=== PATIENT | female | born 2000 | race Caucasian/White ===

== ENCOUNTER 2024-08-04 10:48 | Emergency (ER) | payer OTHER ==
[~2024-08-04] VITALS: Ht 167.6 cm; Wt 143.5 kg
[~2024-08-04 10:48] MED LIST: BACTRIM DS TAB1 EACH PO; CETIRIZINE HCL10 MG PO; CRUTCH1 EACH; DICLOXACILLIN500 MG PO; ELOCON15 GM TOP; IBUPROFEN400 MG PO; IBUPROFEN600 MG PO; NAPROXEN500 MG PO; TYLENOL WITH C1 EACH PO; ZOFRAN ODT4 MG PO
--- OUTSIDE RECORDS SUMMARY | 2024-08-04 10:51 | XMS ---
PreManage Notification: DILSHAD HENDERSON Security Copy Coordinator Events No recent Security Events currently on file CRITERIA MET - Group Notification CARE PROVIDERS -, [facility] Dentist: Scraper Hand Current [place] PHONE: [phone] -Christine- Dentist: Scraper Hand [facility] PHONE: [phone] DONTE ARENAS Physician Assistant Dontae BAUMANN PHONE: [phone] [facility]: [facility] Qual[facility] Health Current WORKERS CLINIC [facility] ([facility]) [facility] PHONE: [phone] Junito has no Care Guidelines for this patient. [place] VISIT COUNT (12 MO.) 1 MELO Coulter TOTAL 1 NOTE: Visits indicate total known visits. ED/UCC VISIT TRACKING (12 MO.) 08/04/2024 10:48 MELO Martin [place] TYPE: Emergency COMPLAINT: - COLD SYMPTOMS INPATIENT VISIT TRACKING (12 MO.) No inpatient visits to display in this time frame [id number]
[2024-08-04 12:19] LABS: INFLUENZA B NAA NEGATIVE (NEGATIVE); RESPIRATORY SYNCYTIAL VIR NAA NEGATIVE (NEGATIVE)
[2024-08-04 13:20] VITALS: BP 149/94
== END 2024-08-04 13:20 | disposition home or self-care (01) ==
LOC: ED 10:48
PROVIDERS: Emergency Medicine
DX: U07.1 COVID-19 (principal); E66.9 Obesity, unspecified
CPT/HCPCS: 87502; 87651; 99283; U0002

== ENCOUNTER 2024-09-09 13:45 | Emergency (ER) | payer OTHER ==
[~2024-09-09] VITALS: Ht 167.6 cm; Wt 148.5 kg
--- OUTSIDE RECORDS SUMMARY | 2024-09-09 13:52 | XMS ---
PreManage Notification: BALA HENDERSON Security Retort Loader Events No recent Security Events currently on file CRITERIA MET - Group Notification CARE PROVIDERS -, [facility] Dentist: Cloth Neutralizer Current [place] PHONE: [phone] -Christine- Dentist: Cloth Neutralizer [facility] PHONE: [phone] DONTE ARENAS Physician Assistant Dontae BAUMANN PHONE: [phone] [facility]: [facility] Health Current WORKERS CLINIC [facility] ([facility]) [facility] PHONE: [phone] Junito has no Care Guidelines for this patient. [place] VISIT COUNT (12 MO.) 2 MELO Coulter TOTAL 2 NOTE: Visits indicate total known visits. ED/UCC VISIT TRACKING (12 MO.) 09/09/2024 13:46 MELO Martin [place] TYPE: Emergency COMPLAINT: - FALL 08/04/2024 10:48 MELO Martin [place] TYPE: Emergency COMPLAINT: - COLD SYMPTOMS DIAGNOSES: - COVID-19 - Nasal congestion - Obesity, unspecified INPATIENT VISIT TRACKING (12 MO.) No inpatient visits to display in this time frame [id number]
[2024-09-09] MEDS ORDERED: ONDANSETRON ODT8 MG PO (16:05)
[2024-09-09 16:20] VITALS: BP 151/80
[2024-09-10] MEDS ORDERED: TRAMADOL HCL50 MG PO (22:19)
[2024-09-10] MEDS ORDERED: CEPHALEXIN500 M1 PO (22:19)
== END 2024-09-09 16:25 | disposition home or self-care (01) ==
LOC: ED 13:45
DX: S09.90XA Unspecified injury of head, initial encounter (principal); M54.2 Cervicalgia; W10.9XXA Fall (on) (from) unspecified stairs and steps, initial encounter; E66.9 Obesity, unspecified; Z68.43 Body mass index [BMI] 50.0-59.9, adult
CPT/HCPCS: 70450; 72125; 99283-25

== ENCOUNTER 2024-09-10 17:52 | Emergency (ER) | payer OTHER ==
[~2024-09-10] VITALS: Ht 167.6 cm; Wt 148.4 kg
[~2024-09-10 17:52] MED LIST changes: +ONDANSETRON ODT8 MG PO
--- OUTSIDE RECORDS SUMMARY | 2024-09-10 17:59 | XMS ---
PreManage Notification: BALA HENDERSON Security Strapping Machine Tender Events No recent Security Events currently on file CRITERIA MET - Group Notification - [facility] - 2 Visits in 30 Days CARE PROVIDERS -[facility] Dentist: Document Imaging Specialist [facility] [place] PHONE: [phone] -Christine- Dentist: Document Imaging Specialist [facility] PHONE: [phone] DONTE ARENAS PHONE: [phone] [facility]/Center: [facility] Qualified [facility] WORKERS CLINIC \[facility] ([facility] PHONE: [phone] Junito has no Care Guidelines for this patient. ERitchieDRitchie VISIT COUNT (12 MO.) 3 MELO Coulter TOTAL 3 NOTE: Visits indicate total known visits. ED/UCC VISIT TRACKING (12 MO.) 09/10/2024 17:53 MELO Martin [place] TYPE: Emergency COMPLAINT: - FACE PAIN 09/09/2024 13:46 MELO Martin [place] TYPE: Emergency COMPLAINT: - FALL DIAGNOSES: - Body mass index [BMI] 50.0-59.9, adult - Cervicalgia - Fall (on) (from) unspecified stairs and steps, initial encounter - Obesity, unspecified - Unspecified injury of head, initial encounter 08/04/2024 10:48 MELO Martin [place] TYPE: Emergency COMPLAINT: - COLD SYMPTOMS DIAGNOSES: - COVID-19 - Nasal congestion - Obesity, unspecified INPATIENT VISIT TRACKING (12 MO.) No inpatient visits to display in this time frame [id number]
[2024-09-10] MEDS ORDERED: OXYCODONE/APAP 5/325 TAB PO ONE (20:15)
[2024-09-10] MEDS ORDERED: TRAMADOL HCL50 MG PO (22:19)
[2024-09-10] MEDS ORDERED: CEPHALEXIN500 M1 PO (22:19)
[2024-09-10] MEDS ORDERED: CEPHALEXIN MONOHYDRATE 500 MG HOME.PACK PO ONE (22:30)
[2024-09-10] MEDS ORDERED: TRAMADOL HCL 50 MG HOME.PACK PO ONE (22:30)
[2024-09-10 22:41] VITALS: BP 136/77
== END 2024-09-10 22:44 | disposition home or self-care (01) ==
LOC: ED 17:52
DX: S00.83XA Contusion of other part of head, initial encounter (principal); K02.9 Dental caries, unspecified; K04.7 Periapical abscess without sinus; E66.9 Obesity, unspecified; Z68.43 Body mass index [BMI] 50.0-59.9, adult; W10.9XXA Fall (on) (from) unspecified stairs and steps, initial encounter
CPT/HCPCS: 70486; 99283-25; A9270

== ENCOUNTER 2025-03-05 09:44 | Emergency (ER) | payer OTHER ==
[~2025-03-05] VITALS: Ht 167.6 cm; Wt 147.0 kg
[~2025-03-05 09:44] MED LIST changes: +CEPHALEXIN500 M1 PO; +TRAMADOL HCL50 MG PO
--- OUTSIDE RECORDS SUMMARY | 2025-03-05 09:51 | XMS ---
PreManage Notification: BALA HENDERSON Security Laboratory Analyst Events No recent Security Events currently on file CRITERIA MET - Group Notification CARE PROVIDERS -, [facility] Dentist: Air Conditioner Installer Helper Current [place] PHONE: [phone] -Christine- Dentist: Air Conditioner Installer Helper Current [facility] PHONE: [phone] MACHELLE FLETCHER Physician Youth Officer [facility] [place] PHONE: [phone] [facility] Qual[facility] Health Current WORKERS CLINIC \F\ [place] ([facility]) <UNAVAIL> PHONE: [phone] Junito has no Care Guidelines for this patient. [place] VISIT COUNT (12 MO.) 5 MELO Coulter TOTAL 5 NOTE: Visits indicate total known visits. ED/UCC VISIT TRACKING (12 MO.) 03/05/2025 09:45 MELO Martin [place] TYPE: Emergency COMPLAINT: - FACIAL SWELLING 10/01/2024 07:32 MELO Tolentinoony Nat Banuelos [place] TYPE: Emergency COMPLAINT: - VOMITING DIAGNOSES: - Body mass index [BMI] 50.0-59.9, adult - Diarrhea, unspecified - Nausea with vomiting, unspecified - Obesity, unspecified - Other detention (current) drug therapy 09/10/2024 17:53 MELO Martin [place] TYPE: Emergency COMPLAINT: - FACE PAIN DIAGNOSES: - Body mass index [BMI] 50.0-59.9, adult - Contusion of other part of head, initial encounter - Dental caries, unspecified - Fall (on) (from) unspecified stairs and steps, initial encounter - Headache, unspecified - Obesity, unspecified - Periapical abscess without sinus 09/09/2024 13:46 MELO Martin [place] TYPE: Emergency [...] visits to display in this time frame [id number]
[2025-03-05] MEDS ORDERED: AMOXICILLIN500 M1 PO (10:07)
[2025-03-05] MEDS ORDERED: PREDNISONE20 MG PO (10:07)
[2025-03-05 10:13] VITALS: BP 129/87
== END 2025-03-05 10:14 | disposition home or self-care (01) ==
LOC: ED 09:44
DX: K04.7 Periapical abscess without sinus (principal)
CPT/HCPCS: 99283